=== PATIENT | female | born 1960 | race Caucasian/White ===

== ENCOUNTER 2021-04-20 19:29 | Emergency (ER) | payer OTHER, SELFPAY ==
[2021-04-20 19:50] VITALS: BP 169/96; PULSE 87; RESP 18; TEMP 36.5; O2SAT 100
[2021-04-20 22:18] VITALS: BP 162/100; PULSE 76; RESP 18; O2SAT 98
[2021-04-20] MEDS: TETRACAINE HCL 0.5% OPHTH SOLN 4 ML BTL 2 DROP LEFT EYE (22:19)
[2021-04-20] MEDS: FLUORESCEIN SOD 1 MG/STRIP EACH EYE (22:20)
[2021-04-20] MEDS: SODIUM CHLORIDE 0.9% IRRIG 1,000 ML 1000 ML IRRIGATION (22:52)
--- NOTE | 2021-04-21 00:01 | ED.GENADULT ---
HPI - General Adult General Chief complaint: Eye Problems Stated complaint: super glue in eye Time Seen by Provider: 04/20/21 21:49 History of Present Illness HPI narrative: Patient 61-year-old female presents emerged from with chief complaint of left eye pain. The patient reports that she had grabbed superglue instead of eyedrops and dropped superglue into her left eye. The patient attempted to irrigate it got some of the glue out of her eye and then came to the emergency department. The patient states it is extremely irritated reports she is able to see out of her eye after her eye was glued shut. Related Data Allergies Allergy/AdvReac Type Severity Reaction Status Date / Time No Known Allergies Allergy Verified 04/20/21 19:54 Review of Systems Review of Systems: A 10 system review of systems was completed on the patient and is negative except for what is stated in the HPI. Nursing and ancillary documentation was reviewed. PMFSH Comments Patient denies significant past medical history social history she is visiting from [place] Exam Narrative: GENERAL: Well-appearing, well-nourished, and in no acute distress. HEAD: Normocephalic, atraumatic. EYES: PERRLA and EOMI. there is injection of the left conjunctive there is a corneal abrasion present involving approximately half of the cornea. ENT: Nares clear, no rhinorrhea or epistaxis. Mucous membranes moist. NECK: Supple. CHEST: Clear to auscultation. No respiratory distress. HEART: Regular rate and rhythm. No murmur heard. Normal peripheral pulses. ABDOMEN: Soft, nontender, nondistended, normal active bowel sounds. EXTREMITIES: Normal range of motion. No edema. SKIN: Warm, dry, no rash. NEURO: No focal deficits. Alert and oriented x3. PSYCH: Normal mood and affect. Course Course Emergency Course: Patient was initially flushed with saline flushes and a 1 L normal saline bag was used with a Kevin lens and the patient is feeling much better after irrigation. Vital Signs Vital signs: Vital Signs Temperature 36.5 C 04/20/21 19:50 Pulse Rate 87 04/20/21 19:50 Respiratory Rate 18 04/20/21 19:50 Blood Pressure 169/96 H 04/20/21 19:50 Pulse Oximetry 100 04/20/21 19:50 Temperature 36.5 C 04/20/21 19:50 Pulse Rate 76 04/20/21 22:18 Respiratory Rate 18 04/20/21 22:18 Blood Pressure 162/100 H 04/20/21 22:18 Pulse Oximetry 98 04/20/21 22:18 Medical Decision Making Vital Signs Vital Signs: Vital Signs Temperature 36.5 C 04/20/21 19:50 Pulse Rate 87 04/20/21 19:50 Respiratory Rate 18 04/20/21 19:50 Blood Pressure 169/96 H 04/20/21 19:50 Pulse Oximetry 100 04/20/21 19:50 Temperature 36.5 C 04/20/21 19:50 Pulse Rate 76 04/20/21 22:18 Respiratory Rate 18 04/20/21 22:18 Blood Pressure 162/100 H 04/20/21 22:18 Pulse Oximetry 98 04/20/21 22:18 Discharge Plan Discharge Clinical Impression: Corneal abrasion Qualifiers: Encounter type: initial encounter Laterality: left Qualified Code(s): S05.02XA - Injury of conjunctiva and corneal abrasion without foreign body, left eye, initial encounter Patient Disposition: Home, Self-Care Condition: Stable Instructions: Antibiotic Form, Corneal Abrasion (ED) Prescriptions: New erythromycin 5 mg/gram (0.5 %) ointment 1 applic LEFT EYE [id number] Qty: 3.5 RF: 0 Follow-up/Referrals: [facility] [Outside] PHYSICIAN NOT ON STAFF,NONSTAFF [Primary Care Provider] - Time of Disposition: 00:04
[2021-04-21] MEDS: ERYTHROMYCIN OPHTH OINTMENT 1 GM TUBE 1 APPLIC EACH EYE (00:23)
[2021-04-21 00:27] VITALS: BP 155/86; PULSE 75; RESP 16; O2SAT 96
== END 2021-04-21 00:28 | disposition home or self-care (01) ==
PROVIDERS: Emergency Provider Emergency Medicine
DX: S05.02XA Injury of conjunctiva and corneal abrasion without foreign body, left eye, initial encounter (principal); X58.XXXA Exposure to other specified factors, initial encounter
CPT/HCPCS: 99283; A9270; J7030